=== PATIENT | male | born 1950 | race Caucasian/White ===

== ENCOUNTER 2018-01-08 16:22 | Inpatient (IN) | payer MEDICARE, OTHER ==
[~2018-01-08] VITALS: Ht 193 cm; Wt 63.9 kg
[2018-01-08] MEDS ORDERED: naproxen 500mg tablet PO ONE (18:45)
[2018-01-08 19:35] LABS: ALANINE AMINOTRANSFERASE 59 U/L (12-78); ALBUMIN 2.6 G/DL (3.4-5.0); ALBUMIN/GLOBULIN RATIO 0.6 (1.1-1.5); ALKALINE PHOSPHATASE 913 IU/L (46-116); ANION GAP 9 (8-16); ASPARTATE AMINO TRANSFERASE 116 U/L (10-37); BILIRUBIN,TOTAL 2.8 MG/DL (0.1-1.0); BLOOD UREA NITROGEN 36 MG/DL (7-18); BUN/CREATININE RATIO 27.7 (5.4-32.0); CALCIUM 9.1 MG/DL (8.5-10.1); CHLORIDE 97 MMOL/L (99-107); GLUCOSE 119 MG/DL (70-104); POTASSIUM 4.4 MMOL/L (3.5-5.1); SODIUM 134 MMOL/L (135-145); TOTAL CARBON DIOXIDE 27.6 MMOL/L (24-32); TOTAL PROTEIN 7.1 G/DL (6.4-8.2); eGFR 55 ML/MIN
[2018-01-08 19:40] LABS: BASOPHILS # (AUTO) 0.1 X10'3 (0-0.2); BASOPHILS % (AUTO) 0.4 % (0-1); EOSINOPHILS # (AUTO) 0.4 X10'3 (0-0.9); EOSINOPHILS % (AUTO) 1.8 % (0-6); HEMATOCRIT 40.2 % (42.0-52.0); HEMOGLOBIN 13.4 g/dl (14.0-17.9); LYMPHOCYTES # (AUTO) 0.8 X10'3 (1.1-4.8); LYMPHOCYTES % (AUTO) 3.9 % (21-51); MEAN CORPUSCULAR HEMOGLOBIN 27.5 PG (27.0-31.0); MEAN CORPUSCULAR HGB CONC 33.2 % (33.0-36.5); MEAN CORPUSCULAR VOLUME 82.7 FL (78-98); MEAN PLATELET VOLUME 9.2 FL (7.4-10.4); MONOCYTES # (AUTO) 1.9 X10'3 (0-0.9); MONOCYTES % (AUTO) 9.2 % (2-12); NEUTROPHILS # (AUTO) 17.3 X10'3 (1.8-7.7); NEUTROPHILS % (AUTO) 84.7 % (42-75); PLATELET COUNT 121 X10'3 (140-440); RED BLOOD COUNT 4.86 X10'6 (4.70-6.10); RED CELL DISTRIBUTION WIDTH 15.2 % (11.5-14.5); WHITE BLOOD COUNT 20.5 X10'3 (4.5-11.0)
[2018-01-08] MEDS ORDERED: NO HOME MEDS (20:14)
[2018-01-08] MEDS ORDERED: normal saline 1000ML IV soln IVB ONE (21:10)
[2018-01-08 22:16] LABS: TOTAL CELLS COUNTED 100
[2018-01-08 22:17] LABS: PLATELET ESTIMATE DECREASED
[2018-01-08 22:18] LABS: SMUDGE CELLS FEW
[2018-01-08] MEDS ORDERED: CefTRIAXone 2gm/D5W 50ml 50 ML IV ONE (22:45)
[2018-01-08] MEDS ORDERED: levoFLOXACIN-Levaquin 750MG/D5 150 ML IV ONE (22:45)
[2018-01-08 22:48] LABS: LIPASE 111 U/L (73-393)
[2018-01-08] MEDS: diatr meglu/diatrizoate 30ml oral sol.-(3 dose) bottle PO SCH ×2 (22:52→23:38)
[2018-01-08] MEDS ORDERED: iohexol 300mg/ml 100ml inj. ONE (22:56)
[2018-01-08] MEDS ORDERED: metroNIDAZOLE-Flagyl 500mg/NS 100 ML IV STA (22:57)
[2018-01-08 23:04] LABS: INR 1.4 INR
[2018-01-09] MEDS: diatr meglu/diatrizoate 30ml oral sol.-(3 dose) bottle PO SCH (00:37)
[2018-01-09] MEDS ORDERED: potassium Cl 20 mEq SR tablet PO PRN ×2 (02:35)
[2018-01-09] MEDS ORDERED: magnesium 4gm in 100ml NS 100 ML IV PRN (02:35)
[2018-01-09] MEDS ORDERED: magnesium hydroxide 30ml (MOM) UD suspension PO PRN (02:35)
[2018-01-09] MEDS ORDERED: potassium Cl 40MEQ/NS 500ml 500 ML IV PRN ×2 (02:35)
[2018-01-09] MEDS ORDERED: ondansetron/PF 4mg/2ml inj IV PRN (02:35)
[2018-01-09] MEDS ORDERED: magnesium Cl slow-release 64mg tablet PO PRN (02:35)
[2018-01-09] MEDS ORDERED: HYDROcodone/acetaminophen 5mg/325mg tablet PO PRN (02:35)
[2018-01-09] MEDS ORDERED: mag hydrox/Alum hydrox/simeth 30ml oral suspension PO PRN (02:35)
[2018-01-09] MEDS ORDERED: magnesium 1gm/100ml D5W IVPB 100 ML IV PRN (02:35)
[2018-01-09] MEDS ORDERED: acetaminophen 325mg tablet PO PRN ×2 (02:35)
[2018-01-09] MEDS ORDERED: levoFLOXACIN-Levaquin 500mg/D5 100 ML IV SCH (02:35)
[2018-01-09] MEDS: normal saline 1000ml 1,000 ML IV SCH ×2 (03:08→17:01)
[2018-01-09 05:00] VITALS: BP 105/74
[2018-01-09 07:32] VITALS: BP 96/67
[2018-01-09] MEDS: K and/or MAG REPLACEMENT MC SCH (07:34)
[2018-01-09] MEDS: levoFLOXACIN-Levaquin 500mg/D5 100 ML IV SCH (07:49)
[2018-01-09] MEDS: enoxaparin 30mg/0.3ml syringe SUBCUT SCH (07:50)
[2018-01-09] MEDS: lactobacillus rhamnosus 10,000 MMU CELLS/CAPSULE PO SCH ×2 (07:50→20:57)
[2018-01-09] MEDS ORDERED: enoxaparin 40mg/0.4ml syringe SUBCUT SCH (08:00)
[2018-01-09 11:33] VITALS: BP 95/58
[2018-01-09 13:59] LABS: CLARITY,URINE CLOUDY (Clear); COLOR,URINE AMBER (Yellow); GLUCOSE, URINE NEGATIVE (Neg); KETONES,URINE NEGATIVE (Neg); LEUKOCYTE ESTERASE ,URINE SMALL (Neg); NITRITES, URINE NEGATIVE (Neg); OCCULT BLOOD,URINE NEGATIVE (Neg); PH,URINE 5.5 (4.8-8.0); PROTEIN,URINE 30 mg/dl (Neg); UROBILINOGEN,URINE >=8.0 E.U/dL (0.2-1.0)
[2018-01-09 14:02] LABS: UA COLLECTION TYPE URINAL
[2018-01-09 14:09] LABS: BACTERIA,URINE 4+ /HPF (Neg); RBC,URINE 0-2 /HPF (0-2); WBC,URINE 50-100 /HPF (0-4)
[2018-01-09 14:10] LABS: COARSE GRANULAR CAST 0-3 /LPF (NEGATIVE); HYALINE CASTS 0-3 /LPF (NEGATIVE); MUCUS STRANDS NONE SEEN /LPF (Neg); SQUAMOUS EPITHELIAL CELL,UR FEW /LPF (FEW); WBC CLUMPS,URINE FEW /HPF (NEGATIVE)
[2018-01-09 18:20] VITALS: BP 111/76
[2018-01-09] MEDS ORDERED: temazepam 15mg capsule PO PRN (21:00)
[2018-01-10] VITALS: BP 103/71
[2018-01-10 05:23] LABS: BASOPHILS % (AUTO) 0.3 % (0-1); EOSINOPHILS # (AUTO) 0.3 X10'3 (0-0.9); EOSINOPHILS % (AUTO) 2.4 % (0-6); HEMOGLOBIN 10.9 g/dl (14.0-17.9); LYMPHOCYTES # (AUTO) 0.7 X10'3 (1.1-4.8); LYMPHOCYTES % (AUTO) 6.1 % (21-51); MEAN CORPUSCULAR HEMOGLOBIN 27.6 PG (27.0-31.0); MEAN CORPUSCULAR VOLUME 83.8 FL (78-98); MEAN PLATELET VOLUME 8.7 FL (7.4-10.4); MONOCYTES # (AUTO) 1.1 X10'3 (0-0.9); MONOCYTES % (AUTO) 9.9 % (2-12); NEUTROPHILS # (AUTO) 8.8 X10'3 (1.8-7.7); NEUTROPHILS % (AUTO) 81.3 % (42-75); PLATELET COUNT 82 X10'3 (140-440); RED BLOOD COUNT 3.94 X10'6 (4.70-6.10); RED CELL DISTRIBUTION WIDTH 15.2 % (11.5-14.5); WHITE BLOOD COUNT 10.9 X10'3 (4.5-11.0)
[2018-01-10] MEDS: normal saline 1000ml 1,000 ML IV SCH ×2 (05:36→19:25)
[2018-01-10 05:40] LABS: ALANINE AMINOTRANSFERASE 53 U/L (12-78); ALBUMIN/GLOBULIN RATIO 0.5 (1.1-1.5); ALKALINE PHOSPHATASE 801 IU/L (46-116); ANION GAP 7 (8-16); ASPARTATE AMINO TRANSFERASE 96 U/L (10-37); BILIRUBIN,TOTAL 2.1 MG/DL (0.1-1.0); BLOOD UREA NITROGEN 26 MG/DL (7-18); BUN/CREATININE RATIO 25.5 (5.4-32.0); CALCIUM 8.2 MG/DL (8.5-10.1); CHLORIDE 102 MMOL/L (99-107); CREATININE 1.02 MG/DL (0.60-1.10); GLUCOSE 120 MG/DL (70-104); MAGNESIUM 1.9 MG/DL (1.5-2.4); POTASSIUM 3.7 MMOL/L (3.5-5.1); SODIUM 136 MMOL/L (135-145); TOTAL CARBON DIOXIDE 26.8 MMOL/L (24-32); TOTAL PROTEIN 5.7 G/DL (6.4-8.2); eGFR 73 ML/MIN
[2018-01-10 05:42] LABS: INR 1.4 INR; PROTHROMBIN TIME 14.7 SECONDS (9.0-12.0)
[2018-01-10 08:00] VITALS: BP 97/69
[2018-01-10] MEDS: K and/or MAG REPLACEMENT MC SCH (08:00)
[2018-01-10] MEDS: lactobacillus rhamnosus 10,000 MMU CELLS/CAPSULE PO SCH ×2 (08:14→20:29)
[2018-01-10] MEDS: levoFLOXACIN-Levaquin 500mg/D5 100 ML IV SCH (08:14)
[2018-01-10] MEDS: HYDROcodone/acetaminophen 10/325mg tab PO PRN ×2 (08:14→20:29)
[2018-01-10] MEDS: enoxaparin 30mg/0.3ml syringe SUBCUT SCH (08:14)
[2018-01-10 12:00] VITALS: BP 97/65
[2018-01-10 20:00] VITALS: BP 106/64
[2018-01-11] VITALS: BP 98/69
[2018-01-11 05:25] LABS: BASOPHILS % (AUTO) 0.3 % (0-1); EOSINOPHILS # (AUTO) 0.2 X10'3 (0-0.9); EOSINOPHILS % (AUTO) 2.7 % (0-6); HEMATOCRIT 31.2 % (42.0-52.0); HEMOGLOBIN 10.3 g/dl (14.0-17.9); LYMPHOCYTES # (AUTO) 0.7 X10'3 (1.1-4.8); LYMPHOCYTES % (AUTO) 9.1 % (21-51); MEAN CORPUSCULAR HEMOGLOBIN 27.5 PG (27.0-31.0); MEAN CORPUSCULAR HGB CONC 33.1 % (33.0-36.5); MEAN CORPUSCULAR VOLUME 83.3 FL (78-98); MEAN PLATELET VOLUME 8.6 FL (7.4-10.4); MONOCYTES # (AUTO) 0.7 X10'3 (0-0.9); MONOCYTES % (AUTO) 8.9 % (2-12); NEUTROPHILS # (AUTO) 6.5 X10'3 (1.8-7.7); PLATELET COUNT 78 X10'3 (140-440); RED BLOOD COUNT 3.75 X10'6 (4.70-6.10); RED CELL DISTRIBUTION WIDTH 15.3 % (11.5-14.5); WHITE BLOOD COUNT 8.2 X10'3 (4.5-11.0)
[2018-01-11 05:30] LABS: INR 1.4 INR; PROTHROMBIN TIME 14.2 SECONDS (9.0-12.0)
[2018-01-11 05:48] LABS: ALANINE AMINOTRANSFERASE 46 U/L (12-78); ALBUMIN 1.8 G/DL (3.4-5.0); ALBUMIN/GLOBULIN RATIO 0.5 (1.1-1.5); ALKALINE PHOSPHATASE 668 IU/L (46-116); ANION GAP 7 (8-16); ASPARTATE AMINO TRANSFERASE 82 U/L (10-37); BILIRUBIN,TOTAL 1.8 MG/DL (0.1-1.0); BLOOD UREA NITROGEN 20 MG/DL (7-18); BUN/CREATININE RATIO 24.7 (5.4-32.0); CALCIUM 7.8 MG/DL (8.5-10.1); CHLORIDE 104 MMOL/L (99-107); CREATININE 0.81 MG/DL (0.60-1.10); GLUCOSE 97 MG/DL (70-104); MAGNESIUM 1.7 MG/DL (1.5-2.4); POTASSIUM 3.7 MMOL/L (3.5-5.1); SODIUM 136 MMOL/L (135-145); TOTAL CARBON DIOXIDE 25.3 MMOL/L (24-32); TOTAL PROTEIN 5.2 G/DL (6.4-8.2); eGFR > 90 ML/MIN
[2018-01-11 07:00] VITALS: BP 99/62
[2018-01-11] MEDS: enoxaparin 30mg/0.3ml syringe SUBCUT SCH (07:39)
[2018-01-11] MEDS: K and/or MAG REPLACEMENT MC SCH (08:00)
[2018-01-11] MEDS: lactobacillus rhamnosus 10,000 MMU CELLS/CAPSULE PO SCH ×2 (08:26→19:28)
[2018-01-11] MEDS: normal saline 1000ml 1,000 ML IV SCH (08:28)
[2018-01-11 11:00] VITALS: BP 103/65
[2018-01-11] MEDS: levoFLOXACIN 500mg tablet PO SCH (11:57)
[2018-01-11] MEDS ORDERED: MORPHINE 2MG in 2ml NS syringe IV PRN (15:15)
[2018-01-11 20:00] VITALS: BP 113/80
[2018-01-12 05:20] LABS: BASOPHILS % (AUTO) 0.2 % (0-1); EOSINOPHILS # (AUTO) 0.3 X10'3 (0-0.9); EOSINOPHILS % (AUTO) 2.5 % (0-6); HEMATOCRIT 34.2 % (42.0-52.0); HEMOGLOBIN 11.2 g/dl (14.0-17.9); LYMPHOCYTES # (AUTO) 0.7 X10'3 (1.1-4.8); MEAN CORPUSCULAR HEMOGLOBIN 27.6 PG (27.0-31.0); MEAN CORPUSCULAR HGB CONC 32.9 % (33.0-36.5); MEAN CORPUSCULAR VOLUME 83.8 FL (78-98); MEAN PLATELET VOLUME 8.6 FL (7.4-10.4); MONOCYTES # (AUTO) 1.3 X10'3 (0-0.9); NEUTROPHILS # (AUTO) 10.2 X10'3 (1.8-7.7); NEUTROPHILS % (AUTO) 81.3 % (42-75); PLATELET COUNT 90 X10'3 (140-440); RED BLOOD COUNT 4.08 X10'6 (4.70-6.10); RED CELL DISTRIBUTION WIDTH 15.8 % (11.5-14.5); WHITE BLOOD COUNT 12.5 X10'3 (4.5-11.0)
[2018-01-12 05:44] LABS: ALANINE AMINOTRANSFERASE 59 U/L (12-78); ALBUMIN 1.9 G/DL (3.4-5.0); ALBUMIN/GLOBULIN RATIO 0.5 (1.1-1.5); ALKALINE PHOSPHATASE 757 IU/L (46-116); ANION GAP 9 (8-16); ASPARTATE AMINO TRANSFERASE 160 U/L (10-37); BLOOD UREA NITROGEN 18 MG/DL (7-18); BUN/CREATININE RATIO 19.6 (5.4-32.0); CALCIUM 8.3 MG/DL (8.5-10.1); CHLORIDE 103 MMOL/L (99-107); CREATININE 0.92 MG/DL (0.60-1.10); GLUCOSE 113 MG/DL (70-104); MAGNESIUM 1.6 MG/DL (1.5-2.4); POTASSIUM 4.1 MMOL/L (3.5-5.1); SODIUM 137 MMOL/L (135-145); TOTAL CARBON DIOXIDE 25.2 MMOL/L (24-32); TOTAL PROTEIN 5.5 G/DL (6.4-8.2); eGFR 82 ML/MIN
[2018-01-12 06:08] LABS: INR 1.3 INR; PROTHROMBIN TIME 13.7 SECONDS (9.0-12.0)
[2018-01-12 07:00] VITALS: BP 106/74
[2018-01-12] MEDS: K and/or MAG REPLACEMENT MC SCH (08:00)
[2018-01-12] MEDS: lactobacillus rhamnosus 10,000 MMU CELLS/CAPSULE PO SCH (08:11)
[2018-01-12 08:15] LABS: CARCINOEMBRYONIC ANTIGEN 280.2 ng/mL (0.0-4.7)
[2018-01-12] MEDS: levoFLOXACIN 500mg tablet PO SCH (11:13)
[2018-01-12 20:00] VITALS: BP 100/41
[2018-01-12] MEDS ORDERED: morphine 10mg/0.5ml (conc. morphine) oral syringe PO PRN (22:20)
[2018-01-12] MEDS ORDERED: ondansetron 4mg rapidly disintigrating tab PO PRN (22:20)
[2018-01-13] VITALS (7 sets, daily range): BP systolic 103–157; BP diastolic 63–82
[2018-01-13] MEDS: oxyCODONE IR 5mg (immed. release) tablet PO PRN (05:55)
[2018-01-14 07:30] VITALS: BP 135/59
[2018-01-14 11:34] VITALS: BP 96/55
[2018-01-14 20:00] VITALS: BP 104/56
[2018-01-15 08:00] VITALS: BP 93/50
[2018-01-15 18:00] VITALS: BP 100/57
[2018-01-16 08:00] VITALS: BP 99/43
[2018-01-16] MEDS: oxyCODONE IR 5mg (immed. release) tablet PO PRN ×2 (14:51→20:17)
[2018-01-16 19:00] VITALS: BP 112/73
[2018-01-17 08:29] VITALS: BP 104/62
[2018-01-17] MEDS: oxyCODONE IR 5mg (immed. release) tablet PO PRN (16:43)
[2018-01-17 19:30] VITALS: BP 108/53
[2018-01-18 07:05] VITALS: BP 91/44
[2018-01-18 19:30] VITALS: BP 97/45
[2018-01-19] MEDS: oxyCODONE IR 5mg (immed. release) tablet PO PRN (04:37)
[2018-01-19 07:26] VITALS: BP 75/36
[2018-01-19 20:00] VITALS: BP 102/52
[2018-01-20 07:23] VITALS: BP 105/68
[2018-01-20 19:30] VITALS: BP 93/57
[2018-01-21 07:04] VITALS: BP 101/65
[2018-01-21 11:42] VITALS: BP 104/39
[2018-01-21 18:35] VITALS: BP 100/56
[2018-01-22 07:00] VITALS: BP 92/49
[2018-01-22 18:45] VITALS: BP 114/55
[2018-01-23 08:00] VITALS: BP 90/50
[2018-01-23 10:09] VITALS: BP 117/67
[2018-01-23] MEDS: oxyCODONE IR 5mg (immed. release) tablet PO PRN (17:13)
[2018-01-23 18:00] VITALS: BP 92/55
[2018-01-24 07:00] VITALS: BP 94/59
[2018-01-24 18:00] VITALS: BP 96/57
[2018-01-25 07:40] VITALS: BP 81/47
[2018-01-25 18:00] VITALS: BP 92/55
[2018-01-25 20:00] VITALS: BP 92/55
[2018-01-26 07:18] VITALS: BP 105/56
[2018-01-26 18:00] VITALS: BP 95/58
[2018-01-27 09:16] VITALS: BP 95/62
[2018-01-27] MEDS: oxyCODONE IR 5mg (immed. release) tablet PO PRN (11:10)
[2018-01-27 20:00] VITALS: BP 86/49
[2018-01-28 08:33] VITALS: BP 82/54
[2018-01-28] MEDS: oxyCODONE IR 5mg (immed. release) tablet PO PRN (10:19)
[2018-01-28] MEDS: morphine 10mg/0.5ml (conc. morphine) oral syringe PO PRN (15:38)
[2018-01-28 18:30] VITALS: BP 70/29
[2018-01-29] MEDS: morphine 10mg/0.5ml (conc. morphine) oral syringe PO PRN ×3 (01:03→21:58)
[2018-01-29 07:32] VITALS: BP 85/46
[2018-01-29 19:00] VITALS: BP 73/40
[2018-01-30 07:20] VITALS: BP 54/20
== END 2018-01-30 09:36 | disposition expired | DRG 435 ==
LOC: ER 16:23 → ED HOLD 01-09 02:34 → SUR 3N 01-09 05:00
PROVIDERS: ADMIT Hospitalist; ATTEND Family Medicine
PROC: BW211ZZ Computerized Tomography (CT Scan) of Abdomen and Pelvis using Low Osmolar Contrast (ICD-10-PCS; principal; 2018-01-09)
DX: C25.2 Malignant neoplasm of tail of pancreas (principal); J18.9 Pneumonia, unspecified organism; C78.7 Secondary malignant neoplasm of liver and intrahepatic bile duct; C78.00 Secondary malignant neoplasm of unspecified lung; C78.89 Secondary malignant neoplasm of other digestive organs; N17.9 Acute kidney failure, unspecified; E87.1 Hypo-osmolality and hyponatremia; E46 Unspecified protein-calorie malnutrition; R65.10 Systemic inflammatory response syndrome (SIRS) of non-infectious origin without acute organ dysfunction; Z68.1 Body mass index [BMI] 19.9 or less, adult; E86.0 Dehydration; Z51.5 Encounter for palliative care; Z91.19 Patient's noncompliance with other medical treatment and regimen; Z88.0 Allergy status to penicillin; Z75.1 Person awaiting admission to adequate facility elsewhere
CPT/HCPCS: 36415; 74177; 76700; 80053; 81001; 82378; 83605; 83690; 83735; 85025; 85610; 86301; 87040; 87070; 87088; 96365; 96366; 96368; 97116; 97161; 97530; 99285; A4315; A6212; A6213; J0696; J1650; J1956; J2274; J3490; J7030; Q9963; Q9967